=== PATIENT | male | born 1990 | race Caucasian/White ===

== ENCOUNTER 2023-01-05 22:42 | Emergency (ER) | payer OTHER ==
[~2023-01-05] VITALS: Ht 182.9 cm; Wt 100.0 kg
[2023-01-05 22:45] VITALS: O2SAT 99
[2023-01-05] MEDS ORDERED: ONDANSETRON HCL 4MG/2ML INJ IV ONE (22:45)
[2023-01-05] MEDS ORDERED: MORPHINE SULFATE 4 MG/ML CPJ (NOT FOR IM USE) IV ONE (22:45)
[2023-01-05] MEDS ORDERED: LIDOCAINE 5% PATCH TOP SCH (22:45)
[2023-01-05] MEDS ORDERED: BACITRACIN 15GM TUBE TOP ONE (22:45)
[2023-01-05 23:05] LABS: BASOPHILS % 0.6 % (0.0-2.0); EOSINOPHILS % 0.4 % (0.0-5.0); HEMATOCRIT. 45.2 % (42.0-52.0); HEMOGLOBIN. 15.3 g/dL (14.0-18.0); LYMPHOCYTES % 9.1 % (20.0-50.0); MEAN CORPUSCULAR HEMOGLOBIN 28.7 pg (28.0-32.0); MEAN CORPUSCULAR HGB CONC 33.9 g/dL (31.0-37.0); MEAN CORPUSCULAR VOLUME 84.5 fL (80.0-94.0); MEAN PLATELET VOLUME 7.2 fl (7.4-10.4); MONOCYTES % 4.1 % (2.0-8.0); NEUTROPHILS % 85.8 % (40.0-76.0); PLATELET 306 x1000/uL (130-400); RED BLOOD CELL COUNT 5.35 mill/uL (4.7-6.1); RED CELL DISTRIBUTION WIDTH 15.2 % (11.6-14.6)
[2023-01-05 23:10] VITALS: TEMP 98.4
[2023-01-05 23:20] LABS: CHLORIDE 110 mEq/L (98-107); INDEX HEMOLYSI 2 (1-3); INDEX ICTERIC 1 (1-4); INDEX LIPEMIC 1 (1-3); POTASSIUM 3.5 mEq/L (3.5-5.1); SODIUM 140 mEq/L (136-145)
[2023-01-05 23:23] LABS: AMMONIA 57 uMol/L (<32)
[2023-01-05 23:28] LABS: ACETAMINOPHEN <2 ug/mL ug/mL (10-30); ALANINE AMINOTRANSFERASE 234 IU/L (13-61); ALBUMIN 4.1 g/dL (3.4-5.0); ASPARTATE AMINOTRANSFERASE 230 IU/L (15-37); BILIRUBIN TOTAL 0.5 mg/dL (0.1-1.0); CALCIUM 8.3 mg/dL (8.5-10.1); CARBON DIOXIDE 22 mEq/L (21-32); CREATININE 0.9 mg/dL (0.6-1.3); ETHANOL BLOOD 226 mg/dL (<10); GLUCOSE 123 mg/dL (70-105); PROTEIN TOTAL 8.2 g/dL (6.0-8.3); UREA NITROGEN BLOOD 12 mg/dL (7-21)
[2023-01-06 00:59] LABS: TROPONIN I HIGH SENSITIVITY 7 ng/L (<78)
[2023-01-06] MEDS ORDERED: LIDO700A15 TP (01:47)
[2023-01-06] MEDS ORDERED: IBUP-2029 MT (01:47)
[2023-01-06] MEDS ORDERED: HYDR-4001 MT (01:47)
[2023-01-06] MEDS ORDERED: TETANUS, DIPHTHERIA, PERTUSSIS VAC/PF 0.5ML (>10YR OLD) IM ONE (02:00)
[2023-01-06 03:30] VITALS: BP 114/72; PULSE 75; RESP 15
== END 2023-01-06 03:32 ==
LOC: ER 22:42
DX: S22.42XA Multiple fractures of ribs, left side, initial encounter for closed fracture (principal); S93.402A Sprain of unspecified ligament of left ankle, initial encounter; S00.01XA Abrasion of scalp, initial encounter; F10.129 Alcohol abuse with intoxication, unspecified; V49.59XA Passenger injured in collision with other motor vehicles in traffic accident, initial encounter; Y93.89 Activity, other specified; Y92.89 Other specified places as the place of occurrence of the external cause; Y99.8 Other external cause status; Y90.7 Blood alcohol level of 200-239 mg/100 ml
CPT/HCPCS: 80053; 80307; 80329; 80320; 82140; 83690; 85025; 36415 ×2; 73610; 12011; 90471; 99285; 84484; 70450; 72125; 71250; 76705; 90715; 96374; 96375; J2405; J2270; Z7610 ×3; G0480